=== PATIENT | male | born 1995 | race Two or more races ===

== ENCOUNTER 2023-04-13 18:00 | Emergency (ER) | payer OTHER ==
[~2023-04-13] VITALS: Ht 172.7 cm; Wt 85.5 kg
[2023-04-13 18:05] VITALS: BP 154/104; PULSE 85; RESP 18; TEMP 98
[2023-04-13] MEDS ORDERED: FLUORESCEIN SODIUM 1 MG STRIP ONE (19:03)
[2023-04-13] MEDS ORDERED: PROPARACAINE HCL 0.5% 15 ML OPHTHALMIC SOLUTION OU ONE (19:15)
[2023-04-13] MEDS ORDERED: ACETAMINOPHEN 500 MG TABLET PO ONE (19:15)
[2023-04-13] MEDS ORDERED: TraMADol HCL 50 MG TABLET PO ONE (23:00)
[2023-04-13] MEDS ORDERED: MOXI3DRO25 OS (23:21)
[2023-04-13] MEDS ORDERED: KETO-108 OS (23:22)
== END 2023-04-13 23:29 | disposition home or self-care (01) ==
LOC: EMS 18:03
DX: T15.02XA Foreign body in cornea, left eye, initial encounter (principal); H10.89 Other conjunctivitis; F17.210 Nicotine dependence, cigarettes, uncomplicated; W44.8XXA Other foreign body entering into or through a natural orifice, initial encounter; Y93.89 Activity, other specified; Y92.89 Other specified places as the place of occurrence of the external cause; Y99.8 Other external cause status
CPT/HCPCS: 99284; Z7502; Z7610